=== PATIENT | male | born 1960 | race Caucasian/White ===

== ENCOUNTER 2020-01-12 13:20 | Emergency (ER) | payer MEDICAID ==
[~2020-01-12] VITALS: Ht 167.6 cm; Wt 72.6 kg
[~2020-01-12 13:20] MED LIST: ALLOPURINOL 10100 M3 PO; AMBIEN 10 MG TA10 MG PO; ASPIRIN81 M2 PO; BACTRIM DS TAB1 EACH PO; CARISOPRODOL 3350 MG PO; DOXEPIN 25 MG C25 M1 GT; FAMOTIDINE 20 M20 MG PO; FLEXERIL PO; HYDROCODONE-AP1 EAC6 PO; IBUPROFEN 800800 M1 PO; KALETRA 200-501 EACH PO; LEXIVA700 MG PO; MEDROLDOSEPACK PO; MOBIC7.5 M1 PO; NORCO 5-325 TA1 EACH PO; NORVIR100 MG PO; ORAPRED ODT10 MG PO; PERCOCET 5-3251 EACH PO; PREDNISONE 20 M20 M1 PO; TRUVADA1 EACH PO; VENTOLIN HFA 1818 GM INH; VIRAMUNE XR400 MG PO; ZPAK PO; [UNRECOGNIZED DRUG - OTHER]
[2020-01-12 13:49] LABS: HEMATOCRIT 33.4 % (42.0-52.0); HEMOGLOBIN 11.5 gm/dL (14.0-18.0); MCH 31.8 pg (26.0-34.0); MCHC 34.5 g/dL (28.0-37.0); MCV 92.1 fL (80.0-100.0); MPV 8.6 fl. (7.2-11.1); NUCLEATED RBCS 0 /100WBC; PLATELET COUNT* 205 thou/uL (150-400); RBC 3.63 mil/uL (4.50-6.00); RDW-CV 14.7 % (10.5-14.5); WBC 3.2 thou/uL (4.0-11.0)
[2020-01-12] MEDS ORDERED: LIPITOR40 MG PO (13:58)
[2020-01-12] MEDS ORDERED: ASPIR 8181 M1 PO (13:58)
[2020-01-12] MEDS ORDERED: PREZCOBIX 8001 EACH PO (13:58)
[2020-01-12] MEDS ORDERED: XARELTO20 MG PO (13:59)
[2020-01-12] MEDS ORDERED: BACTRIM DS TAB1 EAC1 PO (13:59)
[2020-01-12 14:03] LABS: APTT 47.6 Seconds (25.0-31.3); INR 1.6; PROTIME 16.4 Seconds (9.20-11.50)
[2020-01-12 14:13] LABS: ABSOLUTE EOSINOPHILS 0.7 thou/uL (0.0-0.7); ABSOLUTE LYMPHOCYTES 1.1 thou/uL (0.8-5.3); ABSOLUTE MONOCYTES 0.3 thou/uL (0.0-1.2); ABSOLUTE NEUTROPHILS 1.1 thou/uL (1.6-8.1)
[2020-01-12 14:14] LABS: PLATELET ESTIMATE ADEQUATE
[2020-01-12 14:22] LABS: CREATININE 0.8 mg/dL (0.6-1.3); POTASSIUM 5.6 mmol/L (3.5-5.1)
[2020-01-12 14:26] LABS: ALBUMIN 3.6 g/dL (3.4-5.0); TOTAL BILIRUBIN 0.6 mg/dL (<0.1-1.0); TOTAL PROTEIN 7.9 g/dL (6.4-8.2)
[2020-01-12 15:11] VITALS: BP 132/70
--- NOTE | 2020-01-13 11:08 | EKG ---
[place] [address] ELECTROCARDIOGRAM REPORT Name: CHAVA MENENDEZ Room: [facility]#: [id number] Admission: 01/12/20 Attend Phys: Discharge: 01/12/20 Date of : 60 Date of Service: 01/12/20 1352 Report #: [id number] THIS REPORT FOR: //name// [facility] ED Test Date: 2020-01-12 Test Time: 13:52:09 Pat Name: CHAVA MENENDEZ Department: Room: Gender: Services Mgr: [facility] : 1960 Requested By: Andre Encarnacion Order Number: [id number] MD: Mo Nieto Measurements Intervals Simpson Rate: 49 P: 29 CA: 203 QRS: 8 QRSD: 107 T: -3 QT: 507 QTc: 458 Interpretive Statements Sinus bradycardia Probable anterolateral infarct, old Compared to ECG 07/31/2012 08:16:46 Myocardial infarct finding now present Electronically Signed On 01-13-2020 11:06:53 [employer] by Mo Nieto [email or web address] <ELECTRONICALLY SIGNED> By: Mo Nieto MD, FAC 01/13/20 1106 1352 1352 Mo Nieto MD, [facility] /EPI
== END 2020-01-12 15:12 | disposition home or self-care (01) ==
LOC: M.ERS 13:20
PROVIDERS: Family Medicine
DX: R53.1 Weakness (principal); I10 Essential (primary) hypertension; Z88.0 Allergy status to penicillin; Z88.6 Allergy status to analgesic agent; Z90.89 Acquired absence of other organs; Z96.651 Presence of right artificial knee joint